=== PATIENT | male | born 1990 | race Caucasian/White ===

== ENCOUNTER 2025-03-14 09:59 | Emergency (ER) | payer SELFPAY ==
[2025-03-14 10:06] VITALS: BP 133/81; PULSE 83; RESP 16; TEMP 36.6; O2SAT 97; BMI 38.0
--- NOTE | 2025-03-14 10:13 | W.ED.ALLEREA ---
HPI - Allergic Reaction General: Chief complaint: Allergic Reaction Stated complaint: allergic reation Time Seen by Provider: 03/14/25 10:12 Source: patient Mode of arrival: ambulatory Limitations: no limitations History of Present Illness: HPI narrative: Patient is a 35-year-old male who presents to ED today with a complaint of an allergic/contact reaction to poison miroslava. Patient states 2 days ago he began having a poison miroslava like rash. He states that evening he began feeling like his face was swelling. He states he took Benadryl that did help with the edema and itching. He states all day yesterday he began developing worsening rash and worsening facial swelling and pruritus. He states when he woke up this morning his eyes were swollen. He is not having any difficulty breathing or swallowing. No throat itchiness. Patient states he has never been exposed to poison miroslava before but was outside working cutting down branches and trees. MD complaint: allergic reaction and facial swelling Onset (ago): day(s) Exposure: plant Associated symptoms: Reports facial swelling; Deny abdominal pain, dizziness or vomiting Severity: moderate Treatment prior to arrival: benadryl Previous Allergic Reaction History: none Related Data Home Medications ?Medication ?Instructions ?Recorded ?Confirmed diphenhydramine HCl 25 mg tablet 50 mg PO TID PRN Allergic Reaction 03/14/25 03/14/25 (Benadryl Allergy) Previous Rx's ?Medication ?Instructions ?Recorded prednisone 10 mg tablet 10 mg PO DAILY 17 days #57 tabs 03/14/25 Allergies Allergy/AdvReac Type Severity Reaction Status Date / Time No Known Allergies Allergy Verified 03/14/25 10:09 Review of Systems Const: Denies: fever(s), chills, body aches, fatigue or malaise Eyes: Reports: other (periorbital swelling); Denies: change in vision or blurry vision ENMT: Denies: throat pain, odynophagia, mouth pain, swelling of lips/tongue or oral sores Card: Denies: chest pain Resp: Denies: dyspnea GI: Denies: abdominal pain, vomiting or diarrhea Musc: Denies: neck pain, back pain, extremity pain or joint swelling Skin/Breast: Reports: rash and pruritus Neuro: Denies: headache(s), numbness in extremities, weakness in extremities, sensory changes or dizziness All/Imm: Reports: facial swelling Physical Exam Const: COMMON NORMALS: no acute distress, average body habitus, patient oriented x3, no limitations, healthy appearing, alert and well nourished GENERAL APPEARANCE: cooperative ORIENTATION/CONSCIOUSNESS: Yes awake, Yes oriented to person, Yes oriented to place and Yes oriented to time HENMT: FACE & SINUS: edema and other (facial edema due to plant dermatitis; no lip/tongue swelling) MOUTH: Normal oral and palatal mucosa present, lip normal, tongue normal and Normal salivary glands and ducts present THROAT: posterior oropharynx normal and tonsils normal Eye: PERIORBITAL: periorbital findings abnormal Neck/C-Spine: COMMON NORMALS: no lymphadenopathy GENERAL: No anterior neck swelling and No submandibular swelling Resp: COMMON NORMALS: normal respiratory effort and clear to auscultation bilaterally AUSCULTATION: clear to auscultation bilaterally Cardio: COMMON NORMALS: regular rate and regular rhythm RATE: regular rate RHYTHM: regular rhythm Extremity: NARRATIVE EXTREMITY EXAM: plant dermatitis to bilateral LE/UEs, anterior torso GENERAL: Yes normal exam except as noted Neuro: YING COMA SCALE: document GCS findings Ying coma scale eye opening: Spontaneous Ying coma scale verbal response: Orientated Ying coma scale motor response: [place] commands [place] coma scale total score: 15 COMMON NORMALS: patient oriented x3, CN's II-XII intact bilaterally, moves all extremities, no focal motor deficits, no sensory deficits noted and gait normal SENSORIUM/ORIENTATION: Yes alert, Yes oriented to person, Yes oriented to place and Yes oriented to time Skin: NARRATIVE SKIN EXAM: patches of plant dermatitis to bilateral UE/LEs, anterior torso, face RASHES: rashes noted Course Vital Signs: Vital signs: Vital Signs Temperature 97.9 F 03/14/25 10:06 Pulse Rate 83 03/14/25 10:06 Respiratory Rate 16 03/14/25 10:06 Blood Pressure 133/81 03/14/25 10:06 Pulse Oximetry 97 03/14/25 10:06 Oxygen Delivery Me thod Room Air 03/14/25 10:06 MDM - Allergic Reaction Medical Decision Making Patient here with significant allergic/contact dermatitis due to plant/poison miroslava. Patient will be given IM steroids prior to discharge. Will place him on a lengthy steroid taper over the next 2 weeks. Discussed topical treatment. He can continue the Benadryl to help with pruritus. Return precautions discussed. Differential Diagnosis Likely allergic reaction and contact dermatitis Medical Records I reviewed the patient's medical records. No radiology studies performed this visit Discharge Plan Discharge Patient Disposition: Home Clinical Impression: Allergic dermatitis due to poison miroslava Condition: Stable Prescriptions: New prednisone 10 mg tablet 10 mg PO DAILY 17 Days Qty: 57 0RF Rx Instructions: Take 6 tabs on days 1-2, 5 tabs on days 3-5, 4 tabs on days 6-8, 3 tabs on day 9-11, 2 tabs on days 12-14, and 1 tab on day 15-17 No Action diphenhydramine HCl [Benadryl Allergy] 25 mg Tablet 50 mg PO TID PRN (Reason: Allergic Reaction) Discharge Orders: Discharge ED (Routine); Ordered 03/14/25 Ordered By: Amber Puga Patient Instructions: Pramoxine/Zinc Acetate (On the skin) (Calaclear, Caladryl Clear,..., Poison Miroslava (ED), Poison Miroslava, [place], and [place] - Adult Print Language: Z[place]ian Coding Level of Care Code ED [employer] Coordinator for Shalonda Brower
[2025-03-14] MEDS: triamcinolone 40 mg/mL SDV IM (10:23)
[2025-03-14] MEDS: hydrocortisone 100 mg/2 mL SDV IM (10:23)
[2025-03-14 10:34] VITALS: BP 133/84; PULSE 81; O2SAT 94
== END 2025-03-14 10:36 | disposition home or self-care (01) ==
PROVIDERS: Emergency Provider Physician Assistant
DX: L23.7 Allergic contact dermatitis due to plants, except food (principal)
CPT/HCPCS: 96372; 99284; J1720; J3301